=== PATIENT | female | born 1940 | race Caucasian/White ===

== ENCOUNTER 2019-05-18 08:10 | Emergency (ER) | payer OTHER ==
[~2019-05-18] VITALS: Ht 160 cm; Wt 81.6 kg
[2019-05-18] MEDS ORDERED: FOLGARD TABLET1 EACH PO (08:16)
[2019-05-18] MEDS ORDERED: OMEPRAZOLE20 M2 PO (08:16)
[2019-05-18] MEDS ORDERED: IBU600 MG PO (09:39)
== END 2019-05-18 10:54 | disposition home or self-care (01) ==
LOC: ER 08:10
DX: M79.18 Myalgia, other site (principal); M79.622 Pain in left upper arm; M25.552 Pain in left hip

== ENCOUNTER 2020-09-20 11:01 | Emergency (ER) | payer OTHER ==
[~2020-09-20] VITALS: Ht 160 cm; Wt 79.4 kg
[~2020-09-20 11:01] MED LIST: FOLGARD TABLET1 EACH PO; IBU600 MG PO; OMEPRAZOLE20 M2 PO
[2020-09-20] MEDS ORDERED: ATORVASTATIN CA10 MG (11:13)
== END 2020-09-20 15:42 | disposition home or self-care (01) ==
LOC: ER 11:01
DX: R42 Dizziness and giddiness (principal)

== ENCOUNTER 2024-02-13 15:52 | Emergency (ER) | payer OTHER ==
[~2024-02-13] VITALS: Ht 152.4 cm; Wt 72.6 kg
[~2024-02-13 15:52] MED LIST changes: +ATORVASTATIN CA10 MG
[2024-02-13] MEDS ORDERED: AMLODIPINE-OLM1 EAC2 PO (16:04)
[2024-02-13] MEDS ORDERED: LATANOPROST2.5 ML OP (16:04)
[2024-02-13] MEDS ORDERED: EZALLOR SPRINKLE5 MG PO (16:05)
[2024-02-13] MEDS ORDERED: CEFTRIAXONE SODIUM 1,000 MG VIAL IM STA (18:00)
[2024-02-13] MEDS ORDERED: HYDROCODONE/CHLORPHEN P-STIREX 5 ML ML PO STA (18:00)
[2024-02-13] MEDS ORDERED: METHYLPREDNISOLONE SOD SUCC 125 MG VIAL IM STA (18:00)
[2024-02-13] MEDS ORDERED: METHYLPREDNISOLONE SOD SUCC 125 MG VIAL ONE (18:06)
[2024-02-13] MEDS ORDERED: CEFTRIAXONE SODIUM 1,000 MG VIAL ONE (18:06)
== END 2024-02-13 18:32 | disposition home or self-care (01) ==
LOC: ER 15:53
DX: J06.9 Acute upper respiratory infection, unspecified (principal); J45.909 Unspecified asthma, uncomplicated
CPT/HCPCS: 96372; 99282; J0696; J3490

== ENCOUNTER → 2024-05-15 | Emergency (ER) | payer OTHER ==
[~2024-05-15] VITALS: Ht 160 cm; Wt 80.7 kg
[~2024-05-15] MED LIST changes: +AMLODIPINE-OLM1 EAC2 PO; +BENZONATATE 100 MG CAPSULE PO ONE; +BENZONATATE200 M1 PO; +COZAAR25 MG; +EZALLOR SPRINKLE5 MG PO; +IPRATROPIUM/ALBUTEROL SULFATE 3 ML AMPUL.NEB IH ONE; +LATANOPROST2.5 ML OP; +LEVALBUTER0.63 MG/3 IH; +LEVALBUTEROL HCL 1.25 MG/3 ML SOLUTION IH ONE; +MEDROLPACK PO; +METHYLPREDNISOLONE SOD SUCC 40 MG VIAL IM ONE; +PEPCID AC20 MG PO
[2024-05-15 06:20] VITALS: BP 140/68; O2SAT 97
[2024-05-15 09:10] LABS: HEMATOCRIT 37.9 % (36.0-45.00); HEMOGLOBIN 13.3 g/dL (12.0-15.00); MEAN CELL VOLUME 95.2 fL (80.00-100.00); MEAN CORPUSCULAR HEMOGLOBIN 33.3 pg (27.00-32.0); PLATELET COUNT 243 K/uL (150-450); RED BLOOD COUNT 3.98 M/uL (4.00-6.00); RED CELL DISTRIBUTION WIDTH 13.3 % (11.5-14.5)
[2024-05-15 09:28] LABS: ABG PH 7.403 (7.35-7.45); ABG PO2 78.7 mmHg (80-100); ABG pCO2 36.3 mmHg (35-45); BICARBONATE 22.2 mmol/l (23-25); SaO2 95.5 %; Tco2 23.3 mmol/l
[2024-05-15 09:33] LABS: ALBUMIN 4.2 gm/dL (3.4-5.0); BILIRUBIN TOTAL 0.52 mg/dL (0.3-1.2); CALCIUM 9.3 mg/dL (8.5-10.1); CREATININE SERUM 0.67 mg/dL (0.55-1.02); GFR 84.06; GLOBULINA 4.1 G/DL (2.4-3.5); POTASSIUM 3.91 mEq/L (3.5-5.1); TOTAL PROTEIN 8.3 gm/dL (6.4-8.2)
[2024-05-15 09:45] LABS: o2 21 %; puncture site BRADIAL LEFT
[2024-05-15 09:47] LABS: PH,URINE 6.5 (5.0-8.0); URINE APPEARANCE Clear; URINE BILIRRUBIN Negative (NEGATIVE); URINE BLOOD Negative; URINE COLOR Yellow; URINE GLUCOSE Negative (NEGATIVE); URINE KETONE Trace (NEGATIVE); URINE LEUKOCYTE Small; URINE NITRATE Negative; URINE PROTEIN Negative (NEGATIVE)
[2024-05-15 09:48] LABS: URINE EPITHELIAL CELLS 12.9 uL (0.0-38.8); URINE RBC 8.7 uL (0.0-20.8); URINE WBC 46.9 uL (0.0-23.2)
[2024-05-15 09:57] LABS: URINE CAST 0.45 uL (0.0-1.40)
== END | disposition home or self-care (01) ==
LOC: ER 06:19
PROVIDERS: General Practice
DX: R05.9 Cough, unspecified (principal); Z20.822 Contact with and (suspected) exposure to COVID-19; I10 Essential (primary) hypertension
CPT/HCPCS: 36415; 71046; 71250; 82803; 93005; 94640; 96372; 99284; J3490

== ENCOUNTER 2024-10-11 20:36 | Emergency (ER) | payer OTHER ==
[~2024-10-11] VITALS: Ht 160 cm; Wt 78.5 kg
[~2024-10-11 20:36] MED LIST changes: -BENZONATATE 100 MG CAPSULE PO ONE; -IPRATROPIUM/ALBUTEROL SULFATE 3 ML AMPUL.NEB IH ONE; -LEVALBUTEROL HCL 1.25 MG/3 ML SOLUTION IH ONE; -METHYLPREDNISOLONE SOD SUCC 40 MG VIAL IM ONE
[2024-10-11] MEDS ORDERED: NORVASC2.5 M1 PO (21:10)
[2024-10-11] MEDS ORDERED: SIMVASTATIN5 MG PO (21:11)
[2024-10-11] MEDS ORDERED: METOCLOPRAMIDE HCL 5 MG/ML VIAL IM STA (22:06)
[2024-10-11] MEDS ORDERED: MECLIZINE HCL 25 MG TABLET PO STA (22:06)
== END 2024-10-11 22:25 | disposition home or self-care (01) ==
LOC: ER 20:36
DX: H81.10 Benign paroxysmal vertigo, unspecified ear (principal); R53.1 Weakness
CPT/HCPCS: 96372; 99282; J2765

== ENCOUNTER 2025-03-22 12:13 | Emergency (ER) | payer OTHER ==
[~2025-03-22] VITALS: Ht 157.5 cm; Wt 78.5 kg
[~2025-03-22 12:13] MED LIST changes: +NORVASC2.5 M1 PO; +SIMVASTATIN5 MG PO
[2025-03-22] MEDS ORDERED: ORPHENADRINE CITRATE 30 MG/ML AMPUL IM STA (14:57)
[2025-03-22] MEDS ORDERED: KETOROLAC TROMETHAMINE 15 MG VIAL IM STA (14:58)
[2025-03-22] MEDS ORDERED: NORFLEX100MG PO (15:10)
[2025-03-22] MEDS ORDERED: DOLOGESIC-DF 51 EACH PO (15:10)
== END 2025-03-22 16:30 | disposition home or self-care (01) ==
LOC: ER 12:13
DX: M79.605 Pain in left leg (principal); M62.830 Muscle spasm of back; I10 Essential (primary) hypertension; J43.8 Other emphysema